=== PATIENT | male | born 1965 | race Caucasian/White ===

== ENCOUNTER → 2017-08-11 | Outpatient (CLI) | payer BC ==
[~2017-08-11] MED LIST: ASCO60LO PO; ASPI-630 PO; CARV6.25 PO; CRESTOR20 MG PO; EZET10TA18 PO; FURO-69 PO; GLIM1TAB PO; INSU100V13 SQ; IOHEXOL 240 MG/ML 50ML VIAL. ONE; IOHEXOL 300 MG/ML 75 ML VIAL. IV ONE; LISI5TAB PO; MULT-240 PO; NIAC50TA3 PO; OMEG300C PO; POTA10CA PO; VITA15DR PO
[2017-08-11 10:27] LABS: CREATININE 1.5 mg/dL (0.7-1.3); GFR 48.8
[2017-08-11 10:44] LABS: ALBUMIN 3.4 g/dL (3.4-5.0); ALBUMIN/GLOBULIN RATIO 0.8 (1.0-1.7); CALCIUM 9.2 mg/dL (8.5-10.1); TOTAL BILIRUBIN 1.5 mg/dL (0.2-1.0); TOTAL PROTEIN 7.5 g/dL (6.4-8.2)
--- NOTE | 2017-08-11 11:33 | RAD ---
CT of the abdomen and pelvis with contrast, 08/11/2017: History: Abdominal pain Multidetector CT imaging was performed following oral and IV administration of contrast. Comparison is made to a study from 02/19/2016. No hepatic abnormality is detected. The gallbladder is unremarkable. The pancreas shows no abnormality. The spleen is of normal size. No renal abnormality is detected. There are streaky perinephric densities bilaterally compatible with perinephric edema. Similar findings were present on the previous study. There is moderate aortoiliac calcific plaquing. There is slight dilatation of the infrarenal abdominal aorta which measures 3 cm in greatest AP dimension. No abdominal or pelvic adenopathy is seen. No bowel dilatation is evident. The colon is redundant. There is moderate streaky increased density in the paracolic fat at the cecal level compatible with inflammation. By history there has been a previous appendectomy. There are surgical clips related to a 12 mm fluid collection which is probably a slightly dilated appendiceal stump. A cecal diverticulum is less likely. No discrete drainable abscess is seen. No free air is evident in the abdomen or pelvis. There is dilatation of the left inguinal ring containing only fat and spermatic cord structures. No bowel herniation is evident. There is diastases of the rectus abdominis musculature with anterior bulging of the intervening fascia. IMPRESSION: 1. Moderate pericecal inflammation with diagnostic considerations including stump appendicitis or cecal diverticulitis. Rupture of an occult colonic neoplasm is less likely. 2. Small distal abdominal aortic aneurysm. PQRS Compliance Statement: One or more of the following individualized dose reduction techniques were utilized for this examination: 1. Automated exposure control 2. Adjustment of the mA and/or kV according to patient size 3. Use of iterative reconstruction technique
== END | disposition home or self-care (01) ==
LOC: CT 09:16
PROVIDERS: ATTEND Physician Assistant Medical
DX: I71.4 Abdominal aortic aneurysm, without rupture (principal); Z90.89 Acquired absence of other organs
CPT/HCPCS: 36415; 74177; 80053; Q9966; Q9967

== ENCOUNTER → 2017-10-07 | Outpatient (CLI) | payer BC ==
[~2017-10-07] MED LIST changes: -IOHEXOL 240 MG/ML 50ML VIAL. ONE; -IOHEXOL 300 MG/ML 75 ML VIAL. IV ONE
== END | disposition home or self-care (01) ==
LOC: LAB 11:48
PROVIDERS: ATTEND Internal Medicine Cardiovascular Disease
DX: I25.5 Ischemic cardiomyopathy (principal); E78.5 Hyperlipidemia, unspecified
CPT/HCPCS: 80061

== ENCOUNTER → 2017-11-13 | Outpatient (CLI) | payer BC ==
--- NOTE | 2017-11-14 07:50 | RAD ---
Exam: PA and lateral chest radiograph History: Cough, weakness, shortness of air, positive for influenza. Comparison: None. Findings: Cardiac silhouette is at the upper limits of normal for size. Dual-lead AICD by left subclavian approach is seen. Median sternotomy wires are present. Bilateral lung nunes are free of focal infiltrate. No pleural effusion is seen. Impression: No acute cardiopulmonary process.
== END | disposition home or self-care (01) ==
LOC: RAD 17:20
PROVIDERS: ATTEND General Practice
DX: J06.9 Acute upper respiratory infection, unspecified (principal)
CPT/HCPCS: 71046

== ENCOUNTER → 2020-04-12 | Outpatient (CLI) | payer BC ==
[~2020-04-12] MED LIST changes: -EZET10TA18 PO; +EZET10TA20 PO
--- NOTE | 2020-04-12 09:29 | RAD ---
Ultrasound of the right upper quadrant of the abdomen 04/12/2020 CLINICAL HISTORY: Belching. TECHNIQUE: A real-time ultrasound examination of the right upper quadrant of the abdomen was performed. Multiple images were obtained. FINDINGS: The gallbladder is well-distended. No gallstones are visualized. The gallbladder wall thickness is within normal limits. No pericholecystic fluid is seen. The common bile duct measures 3 mm in diameter which is within normal limits. The liver is normal in size measuring 17.6 cm in length. Increased echogenicity of the liver parenchyma is seen consistent with fatty infiltration. No focal abnormality of the liver is seen. The pancreas is not well-visualized due to overlying bowel gas. The right kidney is within normal limits. No free fluid is seen. IMPRESSION: Fatty infiltration of the liver. Otherwise negative study. Electronically signed by: Oseas Gonsalez MD (04/12/2020 9:26 AM) [id number]
== END | disposition home or self-care (01) ==
LOC: US 07:53
PROVIDERS: ATTEND Physician Assistant Medical
DX: K76.0 Fatty (change of) liver, not elsewhere classified (principal)
CPT/HCPCS: 76705